=== PATIENT | female | born 1970 | race American Indian/Alaskan Native ===

== ENCOUNTER 2019-05-07 03:12 | Emergency (ER) | payer BC ==
--- NOTE | 2019-05-07 03:19 | Emergency Department Report ---
ED CPR HPI - General Stated Complaint: CARDIAC ARREST Time Seen by Provider: 05/07/19 03:12 Source: EMS Mode of arrival: Stretcher Limitations: Altered Mental Status, Physical Limitation - History of Present Illness Initial Comments: 48-year-old female presents to the hospital in cardiopulmonary arrest. As per medical record patient has a history of morbid obesity, end-stage renal disease on peritoneal dialysis, CHF, hypertension, diabetes and noncompliant behavior. Last admission here March 2018. EMS received a call for shortness of breath. Pt was sitting in her car [place] a gas station with foamy vomitus at the scene. Patient stated that she has CHF and needed to go to the the hospital. When she was placed on the stretcher she developed cardiopulmonary arrest. CPR was initiated in the field. Patient is intubated with 7.0 ET tube and right tibia IO placed. She received a total of 4 doses of epinephrine prior to arrival. Patient had temporary return of spontaneous circulation with a pulse rate in the 50s as per EMS but deteriorated back to asystole by time of arrival to the ED. Accu-Chek reported at 315. - Related Data Home Medications Medication Instructions Recorded Confirmed Last Taken cloNIDine [Catapres] 0.2 mg PO DAILY 08/08/14 03/02/15 03/01/15 glyBURIDE [Diabeta] 5 mg PO DAILY 08/08/14 03/02/15 03/01/15 Previous Rx's Medication Instructions Recorded Last Taken Type Metoprolol [Lopressor TAB] 100 mg PO BID #60 tablet 01/04/14 03/01/15 Rx amLODIPine 10 mg PO DAILY #30 tablet 01/04/14 03/01/15 Rx Aspirin EC [Halfprin EC] 81 mg PO QDAY #30 tablet. 01/19/15 03/01/15 Rx ISOSORBIDE MONOnitrate [Imdur ER] 30 mg PO QDAY #30 tablet 01/19/15 03/01/15 Rx Furosemide [Lasix TAB] 80 mg PO BID 30 Days tablet 04/04/18 Unknown Rx Allergies Allergy/AdvReac Type Severity Reaction Status Date / Time No Known Allergies Allergy Verified 03/02/15 09:32 ED Review of Systems ROS: Stated complaint: CARDIAC ARREST Other details as noted in HPI Comment: Unobtainable due to pts medical conditions ED Past Medical Hx - Past Medical History Hx Hypertension: Yes Hx Heart Attack/AMI: No Hx Congestive Heart Failure: Yes Hx Diabetes: Yes Hx Deep Vein Thrombosis: No Hx COPD: No - Surgical History Hx Coronary Stent: No Additional Surgical History: EYE SURGERY - Social History Smoking Status: Never Smoker Substance Use Type: None - Medications Home Medications: Home Medications Medication Instructions Recorded Confirmed Last Taken Type Metoprolol [Lopressor TAB] 100 mg PO BID #60 tablet 01/04/14 03/02/15 03/01/15 Rx amLODIPine 10 mg PO DAILY #30 tablet 01/04/14 03/02/15 03/01/15 Rx cloNIDine [Catapres] 0.2 mg PO DAILY 08/08/14 03/02/15 03/01/15 History glyBURIDE [Diabeta] 5 mg PO DAILY 08/08/14 03/02/15 03/01/15 History Aspirin EC [Halfprin EC] 81 mg PO QDAY #30 tablet. 01/19/15 03/02/15 03/01/15 Rx ISOSORBIDE MONOnitrate [Imdur ER] 30 mg PO QDAY #30 tablet 01/19/15 03/02/15 03/01/15 Rx Furosemide [Lasix TAB] 80 mg PO BID 30 Days tablet 04/04/18 Unknown Rx ED Physical Exam - Other Other exam information: General: Unresponsive Head exam: Atraumatic, normocephalic Eyes exam: Pulse fixed and unresponsive ENT: Orally intubated 7.0 ET tube Neck exam: Normal inspection, full range of motion Respiratory exam: Apneic without spontaneous respirations. Chest wall rise with bagging. Breath sounds greater on the right than the left. No breath sounds over the epigastrium Cardiovascular: Pulseless Abdomen: Soft, nondistended with left lower quadrant peritoneal dialysis catheter Extremity:No Deformity Back: Normal Inspection Neurologic: GCS equals 3 Psychiatric: Unresponsive Skin: Warm, dry, intact ED Medical Decision Making - Medical Decision Making Resuscitation efforts continued upon patient arrival city ED. Patient in asystole upon arrival. Patient received additional epi 2 and sodium bicarbonate and remained in asystole. Due to prolonged pulselessness, fixed pupils, and no return of spontaneous circulation with additional epi resuscitation effort were discontinued. Time of : 3:16am pt does not have any family in [place] friend listed as contact friend came to ED informed of pt's and provided number for mother to charge nurse Pt lives alone with a dog and does not have any children pt worked as a middle school humanities teacher. - Differential Diagnosis hyperkalemia, volume overload, chf, mi, pe Critical Care Time: No Critical care attestation.: If time is entered above; I have spent that time in minutes in the direct care of this critically ill patient, excluding procedure time. ED Disposition Clinical Impression: Cardiopulmonary arrest Disposition: [id number] Is pt being admited?: No Condition: Stable Time of Disposition: 03:32
[2019-05-07] MEDS ORDERED: SODIUM BICARB 8.4% 50 MEQ/50 ML SYRINGE IV ONE (03:20)
[2019-05-07] MEDS ORDERED: EPINEPHrine 1:10,000 1 MG/10 ML SYRINGE ONE (03:20)
== END 2019-05-07 06:00 ==
LOC: ED 03:12
DX: I46.9 Cardiac arrest, cause unspecified (principal); I11.0 Hypertensive heart disease with heart failure; I50.9 Heart failure, unspecified; E11.9 Type 2 diabetes mellitus without complications; Z98.890 Other specified postprocedural states; Z79.899 Other long term (current) drug therapy
CPT/HCPCS: 92950; J0171